=== PATIENT | male | born 1935 | race African-American/Black ===

== ENCOUNTER 2018-04-25 14:38 | Inpatient (IN) | payer OTHER ==
[~2018-04-25] VITALS: Ht 172.7 cm; Wt 50.8 kg
[2018-04-25] VITALS (20 sets, daily range): BP systolic 89–116; BP diastolic 61–76
[~2018-04-25 14:38] MED LIST: ETOMIDATE 2MG/ML 10ML VIAL IV ONE; NORMAL SALINE 0.9% 10 ML SYR ONE; SUCCINYLCHOLINE CHLORIDE 200MG/10ML VIAL IV ONE; VECURONIUM BROMIDE 10 MG/VIAL IV ONE
[2018-04-25] MEDS ORDERED: SODIUM CHLORIDE 0.9% 1,000 ML IV ONE (14:46)
[2018-04-25] MEDS ORDERED: ETOMIDATE 2MG/ML 10ML VIAL IV ONE (15:00)
[2018-04-25] MEDS ORDERED: VECURONIUM BROMIDE 10 MG/VIAL IV ONE (15:00)
[2018-04-25] MEDS ORDERED: PROPOFOL 10MG/ML 100ML 100 ML IV ONE (15:00)
[2018-04-25] MEDS ORDERED: ROCURONIUM BROMIDE 10MG/ML VIAL 5ML IV ONE (15:00)
[2018-04-25 15:02] LABS: BASOPHILS % 0.2 % (0.0-2.0); CHLORIDE 111 mEq/L (98-107); EOSINOPHILS % 0.6 % (0.0-5.0); HEMATOCRIT. 37.4 % (42.0-52.0); HEMOGLOBIN. 11.2 g/dL (14.0-18.0); LYMPHOCYTES % 7.1 % (20.0-50.0); MEAN CORPUSCULAR HEMOGLOBIN 26.2 pg (28.0-32.0); MEAN CORPUSCULAR VOLUME 87.1 fL (80.0-94.0); MONOCYTES % 8.6 % (2.0-8.0); NEUTROPHILS % 83.5 % (40.0-76.0); PLATELET 186 x1000/uL (130-400); RED BLOOD CELL COUNT 4.29 mill/uL (4.7-6.1); RED CELL DISTRIBUTION WIDTH 17.7 % (11.6-14.6)
[2018-04-25] MEDS ORDERED: LIDOCAINE HCL 1% 20ML VIAL (Pyxis) INJ ONE (15:02)
[2018-04-25] MEDS ORDERED: SODIUM BICARBONATE 4% (2.4MEQ) 5ML VIAL IV ONE (15:02)
[2018-04-25 15:03] LABS: INR 1.9; PARTIAL THROMBOPLASTIN TIME 28.9 sec (23.4-31.0); PROTHROMBIN TIME 19.4 sec (9.4-11.6)
[2018-04-25 15:06] LABS: ETHANOL BLOOD < 10 mg/dL
[2018-04-25 15:16] LABS: CREATINE KINASE 78 IU/L (39-308); PHENOBARBITAL 2.3 ug/mL (15.0-40.0)
[2018-04-25 15:24] LABS: CARBAMAZEPINE < 0.5 ug/mL (4-12)
[2018-04-25] MEDS ORDERED: SODIUM POLYSTYRENE SULFONATE 15 G/60 ML BOT PO ONE (15:30)
[2018-04-25] MEDS ORDERED: SODIUM BICARBONATE 8.4% 1 MEQ/ML 50ML SYR IV ONE (15:30)
[2018-04-25] MEDS ORDERED: CALCIUM CHLORIDE 1GM/10ML SYR IV ONE (15:30)
[2018-04-25] MEDS ORDERED: LEVETIRACETAM 500MG PREMIX 100 ML IV ONE (16:00)
[2018-04-25] MEDS ORDERED: VANCOMYCIN 1 G PREMIX 200 ML IV SCH (16:00)
[2018-04-25] MEDS ORDERED: PIPERACILLIN/TAZ 3.375G PREMIX 50 ML IV ONE (16:00)
[2018-04-25] MEDS ORDERED: DEXT 5%/0.45% NACL 1000ML 1,000 ML IV SCH (16:09)
[2018-04-25] MEDS ORDERED: ONDANSETRON HCL 4MG/2ML VIAL IV PRN (16:15)
[2018-04-25] MEDS ORDERED: ENOXAPARIN 40MG/0.4ML SYR SUBCUT SCH (16:15)
[2018-04-25] MEDS ORDERED: NA PHOS,M-B/NA PHOS,DI-BA ENEMA 118ML PR PRN (16:15)
[2018-04-25] MEDS ORDERED: IPRATROPIUM/ALBUTEROL 0.5-3(2.5)MG/3ML NEB INH PRN (16:15)
[2018-04-25] MEDS ORDERED: SODIUM CHLORIDE 0.9% 1000ML BAG (SEPSIS BOLUS) IV ONE (16:15)
[2018-04-25] MEDS ORDERED: DOCUSATE SODIUM 100MG CAPSULE PO PRN (16:15)
[2018-04-25] MEDS ORDERED: CLONIDINE 0.1MG TABLET PO PRN (16:15)
[2018-04-25] MEDS ORDERED: ACETAMINOPHEN 325MG TABLET PO PRN (16:15)
[2018-04-25] MEDS ORDERED: NOREPINEPHRINE 4 MG in DEXT 5% WATER 246 ML IV PRN (16:15)
[2018-04-25] MEDS ORDERED: GUAIFENESIN 200MG/10ML SUGAR FREE UDC PO PRN (16:15)
[2018-04-25] MEDS ORDERED: MAGNESIUM/ALUMINUM HYDROXIDE/SIMETHICONE 30ML UDC PO PRN (16:15)
[2018-04-25] MEDS ORDERED: IPRATROPIUM/ALBUTEROL 0.5-3(2.5)MG/3ML NEB HHN PRN (16:15)
[2018-04-25] MEDS ORDERED: IPRATROPIUM/ALBUTEROL 0.5-3(2.5)MG/3ML NEB HHN SCH (16:15)
[2018-04-25] MEDS ORDERED: DIPHENHYDRAMINE 50MG/ML VIAL IV PRN (16:15)
[2018-04-25 16:22] LABS: BG BASE EXCESS -1.7 mmol/L (-2.0-2.0); BG CARBOXYHEMOGLOBIN 0.2 % (0.5-1.5); BG DEOXYHEMOGLOBIN 0.3 % (0.0-5.0); BG FRACTION INSPIRED OXYGEN 100; BG HCO3 ACT 23.7 mmol/L (22.0-26.0); BG METHEMOGLOBIN 0.2 % (0.0-1.5); BG OXYGEN SATURATION 99.7 % (92.0-98.5); BG OXYHEMOGLOBIN 99.3 % (94.0-97.0); BG PCO2 42.9 mmHg (35.0-45.0); BG PO2 367.2 mmHg (75.0-100.0); BG SAMPLE SITE RIGHT BRACHIAL; BG TIDAL VOLUME(mL) 500 mL; BG TOTAL HEMOGLOBIN 10.4 g/dL (12.0-18.0); BG VENT MODE VENT - A/C; BG VENT RATE 12 set
[2018-04-25] MEDS: NOREPINEPHRINE 4 MG in DEXT 5% WATER 246 ML IV PRN (19:04)
[2018-04-25] MEDS ORDERED: PROPOFOL 10MG/ML 100ML 100 ML IV SCH (20:00)
[2018-04-25 20:12] LABS: FOLIC ACID (FOLATE) SERUM > 20.00 ng/mL (>5.38)
[2018-04-25] MEDS ORDERED: PROPOFOL 10MG/ML 100ML 100 ML IV PRN (20:15)
[2018-04-25 20:18] LABS: VITAMIN B12 SERUM 1810 pg/mL (211-911)
[2018-04-25] MEDS: IPRATROPIUM/ALBUTEROL 0.5-3(2.5)MG/3ML NEB HHN SCH (20:26)
[2018-04-25] MEDS: SODIUM CHLORIDE 0.9% 1,000 ML IV SCH ×2 (22:38→23:45)
[2018-04-25] MEDS: PHENYTOIN SODIUM 100MG/2ML VIAL IV SCH (22:38)
[2018-04-25] MEDS: PIPERACILLIN/TAZ 2.25G PREMIX 50 ML IV SCH (23:44)
[2018-04-25] MEDS: VALPROIC ACID 250MG CAPSULE PO SCH (23:44)
[2018-04-25] MEDS: PHENOBARBITAL ELIXIR 30 MG/7.5ML UDC PO SCH (23:44)
[2018-04-25 23:47] LABS: PHOSPHORUS 4.7 mg/dL (2.5-4.9)
[2018-04-25 23:48] LABS: CLARITY URINE TURBID (CLEAR); COLOR URINE YELLOW (YELLOW); KETONES URINE NEGATIVE (NEGATIVE); LEUKOCYTE ESTERASE URINE 3+ (NEGATIVE); NITRITE URINE NEGATIVE (NEGATIVE); OCCULT BLOOD URINE 3+ (NEGATIVE); PROTEIN URINE 1+ (NEGATIVE); SPECIFIC GRAVITY URINE 1.016 (1.005-1.030); UROBILINOGEN URINE 0.2 E.U./dL (0.2-1.0)
[2018-04-26] VITALS (87 sets, daily range): BP systolic 61–140; BP diastolic 42–82
[2018-04-26 00:55] LABS: *AMPHETAMINES SCREEN URINE NEGATIVE (NEGATIVE); *BARBITURATES SCREEN URINE NEGATIVE (NEGATIVE); *BENZODIAZEPINES SCREEN URINE NEGATIVE (NEGATIVE)
[2018-04-26 00:56] LABS: *COCAINE SCREEN URINE NEGATIVE (NEGATIVE); CANNABINOID URINE SCREEN NEGATIVE (NEGATIVE); OPIATES URINE SCREEN NEGATIVE (NEGATIVE); PHENCYCLIDINE URINE SCREEN NEGATIVE (NEGATIVE)
[2018-04-26 00:57] LABS: METHADONE URINE SCREEN NEGATIVE (NEGATIVE)
[2018-04-26] MEDS: IPRATROPIUM/ALBUTEROL 0.5-3(2.5)MG/3ML NEB HHN SCH ×4 (02:07→20:40)
[2018-04-26] MEDS: DEXTROSE 5% WATER 1,000 ML IV SCH ×2 (02:30→13:48)
[2018-04-26] MEDS ORDERED: DEXTROSE 50% WATER 50ML SYRINGE IV PRN (02:30)
[2018-04-26 05:52] LABS: BASOPHILS % 0.4 % (0.0-2.0); EOSINOPHILS % 3.4 % (0.0-5.0); HEMATOCRIT. 32.4 % (42.0-52.0); LYMPHOCYTES % 9.4 % (20.0-50.0); MEAN CORPUSCULAR HEMOGLOBIN 26.8 pg (28.0-32.0); MEAN CORPUSCULAR VOLUME 86.9 fL (80.0-94.0); MEAN PLATELET VOLUME 8.8 fl (7.4-10.4); MONOCYTES % 9.4 % (2.0-8.0); NEUTROPHILS % 77.4 % (40.0-76.0); PLATELET 122 x1000/uL (130-400); RED BLOOD CELL COUNT 3.72 mill/uL (4.7-6.1); RED CELL DISTRIBUTION WIDTH 17.7 % (11.6-14.6)
[2018-04-26] MEDS: PHENYTOIN SODIUM 100MG/2ML VIAL IV SCH ×3 (05:59→21:07)
[2018-04-26] MEDS: PHENOBARBITAL ELIXIR 30 MG/7.5ML UDC PO SCH ×3 (05:59→21:08)
[2018-04-26] MEDS: VALPROIC ACID 250MG CAPSULE PO SCH (05:59)
[2018-04-26] MEDS: BLOOD SUGAR DIAGNOSTIC STRIP TEST SCH ×3 (06:01→18:17)
[2018-04-26] MEDS: INSULIN LISPRO 100 UNITS/ML SUBCUT SCH ×3 (06:01→18:00)
[2018-04-26 06:46] LABS: CHLORIDE 119 mEq/L (98-107)
[2018-04-26 06:55] LABS: PHOSPHORUS 3.8 mg/dL (2.5-4.9)
[2018-04-26] MEDS: PIPERACILLIN/TAZ 2.25G PREMIX 50 ML IV SCH ×2 (08:16→22:34)
[2018-04-26] MEDS: PANTOPRAZOLE SODIUM 40 MG/VIAL IV SCH (08:26)
[2018-04-26 08:41] LABS: BG BASE EXCESS 1.2 mmol/L (-2.0-2.0); BG DEOXYHEMOGLOBIN 0.5 % (0.0-5.0); BG FRACTION INSPIRED OXYGEN 50; BG HCO3 ACT 26.8 mmol/L (22.0-26.0); BG METHEMOGLOBIN 0.1 % (0.0-1.5); BG OXYGEN SATURATION 99.5 % (92.0-98.5); BG OXYHEMOGLOBIN 98.4 % (94.0-97.0); BG PCO2 46.7 mmHg (35.0-45.0); BG PH 7.376 (7.350-7.450); BG SAMPLE SITE RIGHT BRACHIAL; BG TIDAL VOLUME(mL) 450 mL; BG TOTAL HEMOGLOBIN 11.1 g/dL (12.0-18.0); BG VENT MODE VENT - A/C; BG VENT RATE 12 set
[2018-04-26] MEDS ORDERED: DIATR MEGLU/DIATRIZOATE SOLN 30ML PO SCH (08:50)
[2018-04-26] MEDS ORDERED: DIATR MEGLU/DIATRIZOATE SOLN 30ML ONE (09:14)
[2018-04-26] MEDS ORDERED: ATOR40TA70 PO (10:18)
[2018-04-26] MEDS ORDERED: ASPI-1159 PO (10:18)
[2018-04-26] MEDS ORDERED: OMEG-118 MT (10:18)
[2018-04-26] MEDS ORDERED: MULT-1146 PO (10:18)
[2018-04-26] MEDS ORDERED: VIT D3 PO (10:18)
[2018-04-26] MEDS ORDERED: VIT C PO (10:18)
[2018-04-26] MEDS ORDERED: FINA5TAB11 PO (10:18)
[2018-04-26] MEDS ORDERED: TAMS0.4C31 PO (10:18)
[2018-04-26] MEDS ORDERED: PHEN50TA PO (10:18)
[2018-04-26] MEDS ORDERED: CALC-1042 PO (10:18)
[2018-04-26] MEDS ORDERED: POTASSIUM CHLORIDE 20MEQ/PACKET PO NR (12:00)
[2018-04-26] MEDS ORDERED: VANCOMYCIN 1 G PREMIX 200 ML IV NR (13:00)
[2018-04-26 13:03] LABS: PROSTRATE SPECIFIC AG TOTAL 88.37 ng/mL (0.0-4.0)
[2018-04-26 13:04] LABS: CARCINO EMBRYONIC ANTIGEN 9.4 ng/ml
[2018-04-26] MEDS: VALPROATE SODIUM 250MG/5ML UDC NG SCH ×2 (13:47→21:07)
[2018-04-26] MEDS: NOREPINEPHRINE 4 MG in DEXT 5% WATER 246 ML IV PRN (15:30)
[2018-04-26] MEDS ORDERED: NOREPINEPHRINE 8 MG in DEXT 5% WATER 246 ML IV PRN (23:30)
[2018-04-27] VITALS (66 sets, daily range): BP systolic 64–150; BP diastolic 22–86
[2018-04-27] MEDS: BLOOD SUGAR DIAGNOSTIC STRIP TEST SCH ×4 (00:28→17:00)
[2018-04-27] MEDS ORDERED: NOREPINEPHRINE 8 MG in DEXT 5% WATER 242 ML IV PRN (00:45)
[2018-04-27] MEDS: IPRATROPIUM/ALBUTEROL 0.5-3(2.5)MG/3ML NEB HHN SCH ×3 (02:08→14:08)
[2018-04-27] MEDS: DEXTROSE 5% WATER 1,000 ML IV SCH ×2 (03:44→14:15)
[2018-04-27] MEDS: PIPERACILLIN/TAZ 2.25G PREMIX 50 ML IV SCH ×2 (04:09→12:41)
[2018-04-27 04:39] LABS: BASOPHILS % 0.2 % (0.0-2.0); EOSINOPHILS % 3.7 % (0.0-5.0); HEMATOCRIT. 30.9 % (42.0-52.0); HEMOGLOBIN. 9.6 g/dL (14.0-18.0); LYMPHOCYTES % 14.5 % (20.0-50.0); MEAN CORPUSCULAR HEMOGLOBIN 26.2 pg (28.0-32.0); MEAN CORPUSCULAR VOLUME 84.7 fL (80.0-94.0); MONOCYTES % 8.4 % (2.0-8.0); NEUTROPHILS % 73.2 % (40.0-76.0); PLATELET 135 x1000/uL (130-400); RED BLOOD CELL COUNT 3.65 mill/uL (4.7-6.1); RED CELL DISTRIBUTION WIDTH 17.7 % (11.6-14.6)
[2018-04-27 04:55] LABS: CHLORIDE 111 mEq/L (98-107)
[2018-04-27] MEDS: INSULIN LISPRO 100 UNITS/ML SUBCUT SCH ×4 (06:00→17:00)
[2018-04-27] MEDS: PHENOBARBITAL ELIXIR 30 MG/7.5ML UDC PO SCH ×2 (06:38→14:14)
[2018-04-27] MEDS: VALPROATE SODIUM 250MG/5ML UDC NG SCH ×2 (06:38→14:14)
[2018-04-27] MEDS: PHENYTOIN SODIUM 100MG/2ML VIAL IV SCH ×2 (06:38→14:15)
[2018-04-27] MEDS: PANTOPRAZOLE SODIUM 40 MG/VIAL IV SCH (09:21)
[2018-04-27] MEDS ORDERED: VANCOMYCIN 750 MG PREMIX 150 ML IV SCH (10:00)
[2018-04-27 10:24] LABS: BG BASE EXCESS 0.9 mmol/L (-2.0-2.0); BG CARBOXYHEMOGLOBIN 0.7 % (0.5-1.5); BG DEOXYHEMOGLOBIN 2.1 % (0.0-5.0); BG FRACTION INSPIRED OXYGEN 35; BG HCO3 ACT 25.4 mmol/L (22.0-26.0); BG METHEMOGLOBIN 0.3 % (0.0-1.5); BG OXYGEN SATURATION 97.9 % (92.0-98.5); BG OXYHEMOGLOBIN 96.9 % (94.0-97.0); BG PCO2 40.4 mmHg (35.0-45.0); BG PH 7.417 (7.350-7.450); BG PO2 107.4 mmHg (75.0-100.0); BG SAMPLE SITE RIGHT BRACHIAL; BG TIDAL VOLUME(mL) 450 mL; BG TOTAL HEMOGLOBIN 9.7 g/dL (12.0-18.0); BG VENT MODE VENT - A/C; BG VENT RATE 12 set
[2018-04-27 13:06] LABS: *CREATININE RANDOM URINE 47.9 mg/dL (Not Estab.); MICROALBUMIN RANDOM URINE 109.8 ug/mL (Not Estab.)
[2018-04-29 04:15] LABS: ALPHA FETOPROTEIN TUMOR MARKER 3.1 ng/mL (0.0-8.3)
== END 2018-04-27 17:10 | disposition short-term general hospital (02) | DRG 871 ==
LOC: ER 14:38 → EDBEDREQSVC 14:52 → EDBEDREQ 14:52 → MICUSO 15:50 → EDBEDREQ 15:53 → ENRESERV 16:16 → SUPCPDRO 18:04
PROVIDERS: ADMIT Internal Medicine; ATTEND Internal Medicine
PROC: 5A1945Z Respiratory Ventilation, 24-96 Consecutive Hours (ICD-10-PCS; principal; 2018-04-25)
PROC: 0BH17EZ Insertion of Endotracheal Airway into Trachea, Via Natural or Artificial Opening (ICD-10-PCS; 2018-04-25)
PROC: 02HV33Z Insertion of Infusion Device into Superior Vena Cava, Percutaneous Approach (ICD-10-PCS; 2018-04-25)
PROC: B548ZZA Ultrasonography of Superior Vena Cava, Guidance (ICD-10-PCS; 2018-04-25)
PROC: 06HB33Z Insertion of Infusion Device into Left Renal Vein, Percutaneous Approach (ICD-10-PCS; 2018-04-25)
PROC: B54 Imaging, Veins, Ultrasonography (ICD-10-PCS; 2018-04-25)
DX: A41.9 Sepsis, unspecified organism (principal); E43 Unspecified severe protein-calorie malnutrition; J69.0 Pneumonitis due to inhalation of food and vomit; J96.00 Acute respiratory failure, unspecified whether with hypoxia or hypercapnia; R65.21 Severe sepsis with septic shock; G92 Toxic encephalopathy; N17.0 Acute kidney failure with tubular necrosis; D68.9 Coagulation defect, unspecified; E87.0 Hyperosmolality and hypernatremia; I69.354 Hemiplegia and hemiparesis following cerebral infarction affecting left non-dominant side; D63.8 Anemia in other chronic diseases classified elsewhere; E83.51 Hypocalcemia; E86.1 Hypovolemia; E87.5 Hyperkalemia; E87.6 Hypokalemia; F03.90 Unspecified dementia, unspecified severity, without behavioral disturbance, psychotic disturbance, mood disturbance, and anxiety; G40.909 Epilepsy, unspecified, not intractable, without status epilepticus; K05.10 Chronic gingivitis, plaque induced; N18.9 Chronic kidney disease, unspecified; R13.10 Dysphagia, unspecified; S02.5XXA Fracture of tooth (traumatic), initial encounter for closed fracture; Z78.1 Physical restraint status; Z89.439 Acquired absence of unspecified foot; Z99.2 Dependence on renal dialysis; Z85.46 Personal history of malignant neoplasm of prostate; X58.XXXA Exposure to other specified factors, initial encounter; Y93.89 Activity, other specified; Y92.89 Other specified places as the place of occurrence of the external cause; Y99.8 Other external cause status
CPT/HCPCS: 31500; 36415; 36556; 36569; 36600; 70450; 70551; 71045; 71250; 74176; 76770; 76937; 80048; 80053; 80061; 80156; 80165; 80184; 80185; 80202; 80305; 81003; 82043; 82105; 82375; 82378; 82550; 82570; 82607; 82746; 82805; 82962; 83036; 83540; 83550; 83605; 83735; 83880; 83935; 84100; 84153; 84156; 84300; 84443; 84478; 84484; 85025; 85610; 85730; 86301; 86850; 86900; 87040; 87070; 87086; 93005; 93970; 96361; 96365; 96366; 96368; 96375; 99285; A4216; C1725; C1752; C9113; G0482; J0330; J1165; J1815; J1953; J2543; J2704; J3370; J3490; J7030; J7050; J7060; J7070; J7620; Q9963; A4315